=== PATIENT | female | born 1990 | race African-American/Black ===

== ENCOUNTER 2020-02-04 16:37 | Emergency (ER) | payer MEDICAID ==
[~2020-02-04] VITALS: Ht 167.6 cm; Wt 88.2 kg
[2020-02-04 16:58] VITALS: TEMP 97.7
[2020-02-04] MEDS ORDERED: NORCO 325 MG-51 TAB PO (17:18)
[2020-02-04] MEDS ORDERED: AMOXICILLIN 50500 MG PO (17:18)
[2020-02-04 17:32] VITALS: BP 111/79; PULSE 91
== END 2020-02-04 17:34 | disposition home or self-care (01) ==
LOC: COL.ER 16:37
DX: S02.5XXA Fracture of tooth (traumatic), initial encounter for closed fracture (principal); K04.7 Periapical abscess without sinus; F17.200 Nicotine dependence, unspecified, uncomplicated

== ENCOUNTER 2020-02-15 16:26 | Emergency (ER) | payer MEDICAID ==
[~2020-02-15] VITALS: Ht 167.6 cm; Wt 92.3 kg
[~2020-02-15 16:26] MED LIST: AMOXICILLIN 50500 MG PO; NORCO 325 MG-51 TAB PO
[2020-02-15 16:35] VITALS: BP 112/82
[2020-02-15] MEDS ORDERED: NORCO 325 MG-51 TAB PO (17:43)
[2020-02-15] MEDS ORDERED: CLEOCIN HCL300 MG PO (17:43)
[2020-02-15] MEDS ORDERED: PREDNISONE10 MG PO (17:51)
[2020-02-15] MEDS ORDERED: TREXALL5 MG PO (17:53)
[2020-02-15 17:55] VITALS: PULSE 89; TEMP 98.7
== END 2020-02-15 18:00 | disposition home or self-care (01) ==
LOC: COL.ER 16:26
DX: K08.89 Other specified disorders of teeth and supporting structures (principal); F17.210 Nicotine dependence, cigarettes, uncomplicated; Z79.52 Long term (current) use of systemic steroids

== ENCOUNTER 2020-04-21 15:58 | Emergency (ER) | payer MEDICAID ==
[~2020-04-21] VITALS: Ht 167.6 cm; Wt 92.7 kg
[~2020-04-21 15:58] MED LIST changes: +CLEOCIN HCL300 MG PO; +PREDNISONE10 MG PO; +TREXALL5 MG PO
[2020-04-21 16:07] VITALS: TEMP 97.4
[2020-04-21] MEDS ORDERED: NAPROSYN500 MG PO (16:56)
[2020-04-21 17:09] VITALS: BP 121/70; PULSE 89
== END 2020-04-21 17:10 | disposition home or self-care (01) ==
LOC: COL.ER 15:58
DX: M32.9 Systemic lupus erythematosus, unspecified (principal)
CPT/HCPCS: J1885

== ENCOUNTER 2020-05-12 17:16 | Emergency (ER) | payer MEDICAID ==
[~2020-05-12] VITALS: Ht 167.6 cm; Wt 92.7 kg
[~2020-05-12 17:16] MED LIST changes: +NAPROSYN500 MG PO
[2020-05-12 17:19] VITALS: BP 121/78; TEMP 98
[2020-05-12 18:20] LABS: BASO % 0.4 % (0.0-2.0); EOS # 0.1 (0.0-0.7); GRAN # 3.2 (1.4-6.5); GRAN % 69.9 % (42.2-75.2); HEMATOCRIT 40.1 % (37.0-47.0); HEMOGLOBIN 13.2 g/dl (12.5-16.0); LYMPH % 21.3 % (20.0-51.0); MEAN CELL VOLUME 95 fl (80.0-100.0); MEAN CORPUSCULAR HEMOGLOBIN 31 pg (27.0-31.0); MEAN CORPUSCULAR HGB CONC 33 g/dl (33.0-37.0); MEAN PLATELET VOLUME 9.5 fl (7.4-10.4); MONO # 0.3 (0.1-0.6); MONO % 6.2 % (1.7-9.3); PLATELET COUNT 273 K/mm3 (130-400); RED BLOOD COUNT 4.22 M/mm3 (4.10-5.30)
[2020-05-12 18:30] LABS: ALBUMIN 3.5 gm/dL (3.5-5.0); BILIRUBIN,TOTAL 0.2 mg/dL (0.0-1.0); CALCIUM 8.6 mg/dL (8.4-10.2); CREATININE, serum 0.71 (0.52-1.25); POTASSIUM 3.3 mmol/L (3.4-5.0); TOTAL PROTEIN 7.4 gm/dL (6.4-8.2)
[2020-05-12 19:09] LABS: COLLECTION METHOD CLEAN CATCH
[2020-05-12 19:16] LABS: MUCOUS Present /lpf; PH 6 (5-8); SQUAMOUS EPITHELIAL 0-2 /hpf; URINE APPEARANCE Clear; URINE BACTERIA None Seen /hpf; URINE BILIRUBIN Negative (NEGATIVE); URINE BLOOD 1+ (NEGATIVE); URINE COLOR Yellow; URINE GLUCOSE Negative (NEGATIVE); URINE KETONE Negative (NEGATIVE); URINE LEUKOCYTE ESTERASE Negative (NEGATIVE); URINE NITRATE Negative (NEGATIVE); URINE PROTEIN(semi-quant) 1+ (NEGATIVE); URINE UROBILINOGEN Negative (NEGATIVE)
[2020-05-12 20:52] VITALS: PULSE 90
== END 2020-05-12 20:53 | disposition home or self-care (01) ==
LOC: COL.ER 17:16
PROVIDERS: Physician Assistant
DX: R10.12 Left upper quadrant pain (principal); R10.32 Left lower quadrant pain; Z32.02 Encounter for pregnancy test, result negative
CPT/HCPCS: J1885; J2270; J7030; Q9967

== ENCOUNTER 2024-02-28 15:29 | Emergency (ER) | payer MEDICAID ==
[~2024-02-28] VITALS: Ht 167.6 cm; Wt 86.4 kg
[~2024-02-28 15:29] MED LIST changes: +PLAQUENIL 200M200 MG PO; +PREDNISONE20 MG PO
[2024-02-28 15:35] VITALS: TEMP 98.4
[2024-02-28] MEDS ORDERED: dexAMETHasone 10 MG/ML VIAL IM ONE (17:00)
[2024-02-28] MEDS ORDERED: TYLENOL W/COD1 UDTAB PO (17:06)
[2024-02-28] MEDS ORDERED: Acetaminophen/Codeine 300-30 MG TAB PO ONE (17:15)
[2024-02-28 17:18] VITALS: BP 123/85; PULSE 112
== END 2024-02-28 17:18 | disposition home or self-care (01) ==
LOC: COL.ER 15:29
DX: M32.9 Systemic lupus erythematosus, unspecified (principal); M06.9 Rheumatoid arthritis, unspecified; Z79.52 Long term (current) use of systemic steroids; Z79.631 Long term (current) use of antimetabolite agent
CPT/HCPCS: J1100

== ENCOUNTER 2024-03-01 01:32 | Emergency (ER) | payer MEDICAID ==
[~2024-03-01] VITALS: Ht 167.6 cm; Wt 91.4 kg
[~2024-03-01 01:32] MED LIST changes: +TYLENOL W/COD1 UDTAB PO
[2024-03-01 01:50] VITALS: BP 110/75; PULSE 99; TEMP 98.6
[2024-03-01] MEDS ORDERED: Famotidine 40 MG/5 ML Oral Susp 50 ML Bottle PO ONE (02:15)
[2024-03-01] MEDS ORDERED: dexAMETHasone 10 MG/ML VIAL PO ONE (02:15)
== END 2024-03-01 02:41 | disposition left against medical advice (07) ==
LOC: COL.ER 01:32
DX: K14.6 Glossodynia (principal); R22.9 Localized swelling, mass and lump, unspecified
CPT/HCPCS: J1100

== ENCOUNTER 2024-03-29 18:25 | Emergency (ER) | payer MEDICAID ==
[~2024-03-29] VITALS: Ht 167.6 cm; Wt 100.0 kg
[2024-03-29 18:37] VITALS: TEMP 98.4
[2024-03-29] MEDS ORDERED: Baclofen 10 MG TAB PO ONE (21:00)
[2024-03-29] MEDS ORDERED: Ketorolac 60 MG/2 ML VIAL IM ONE (21:00)
[2024-03-29] MEDS ORDERED: LIORESAL 1010 MG/TAB PO (22:09)
[2024-03-29] MEDS ORDERED: MOBIC 7.5MG7.5 MG PO (22:09)
[2024-03-29 22:23] VITALS: BP 121/75; PULSE 110
== END 2024-03-29 22:23 | disposition home or self-care (01) ==
LOC: COL.ER 18:25
DX: M54.50 Low back pain, unspecified (principal); M54.6 Pain in thoracic spine; G89.29 Other chronic pain; F17.200 Nicotine dependence, unspecified, uncomplicated
CPT/HCPCS: J1885

== ENCOUNTER 2024-04-03 07:46 | Emergency (ER) | payer MEDICAID ==
[~2024-04-03] VITALS: Ht 167.6 cm; Wt 100.0 kg
[~2024-04-03 07:46] MED LIST changes: +LIORESAL 1010 MG/TAB PO; +MOBIC 7.5MG7.5 MG PO
[2024-04-03] MEDS ORDERED: LR 1,000 ML IV ONE (08:30)
[2024-04-03] MEDS ORDERED: Morphine 4 MG/ML VIAL IV ONE (08:30)
[2024-04-03] MEDS ORDERED: Ondansetron 4 MG/2 ML VIAL IV ONE (08:30)
[2024-04-03 09:08] LABS: BASO % 0.7 % (0.0-2.0); EOS # 0.1 K/mm3 (0.0-0.7); EOS % 2.6 % (0.0-4.0); GRAN % 46.4 % (42.2-75.2); HEMATOCRIT 40.6 % (37.0-47.0); HEMOGLOBIN 13.1 g/dl (12.5-16.0); LYMPH # 1.7 K/mm3 (1.2-3.4); LYMPH % 40.8 % (20.0-51.0); MEAN CELL VOLUME 96 fl (80.0-100.0); MEAN CORPUSCULAR HEMOGLOBIN 31 pg (27-31); MEAN CORPUSCULAR HGB CONC 32 g/dl (33.0-37.0); MEAN PLATELET VOLUME 9.6 fl (7.4-10.4); MONO # 0.4 K/mm3 (0.1-0.6); PLATELET COUNT 332 K/mm3 (130-400); RED BLOOD COUNT 4.24 M/mm3 (4.10-5.30); REDCELL DISTRIBUTION WIDTH-CV 15.1 % (11.5-14.5)
[2024-04-03 09:22] LABS: ALBUMIN 2.9 g/dL (3.5-5.0); BILIRUBIN,TOTAL 0.1 mg/dL (0.2-1.2); C-REACTIVE PROTEIN 0.74 mg/dL (0.00-0.50); CALCIUM 8.9 mg/dL (8.4-10.2); CREATININE, serum 0.75 mg/dL (0.57-1.11); POTASSIUM 3.4 mEq/L (3.5-4.5); TOTAL PROTEIN 7.6 g/dl (6.2-8.1)
[2024-04-03] MEDS ORDERED: Iohexol 300 - 100 ML VIAL IV ONE (10:32)
[2024-04-03] MEDS ORDERED: NS 100 ML IV SCH (10:32)
[2024-04-03] MEDS ORDERED: Ketorolac 15 MG/ML VIAL IV ONE (11:00)
[2024-04-03] MEDS ORDERED: NORCO 325 MG-51 TAB PO (11:18)
[2024-04-03 11:40] VITALS: BP 122/94; PULSE 75
== END 2024-04-03 11:40 | disposition home or self-care (01) ==
LOC: COL.ER 07:46
PROVIDERS: Family Medicine
DX: R10.11 Right upper quadrant pain (principal)
CPT/HCPCS: J1885; J2270; J2405; J7120; Q9967